=== PATIENT | male | born 1985 | race Caucasian/White ===

== ENCOUNTER 2018-10-18 01:00 | Outpatient (CLI) | payer BC, SELFPAY ==
--- NOTE | 2018-10-18 08:56 | DI.MRI_ITS ---
SYMPTOM/DIAGNOSIS: CHRONIC BACK AND NECK PAIN, M54.5, PARESTHESIAS IN HANDS CERVICAL SPINE MRI: T 1, T 2, STIR, FLAIR and T 2 3D sagittal and gradient echo axial sequences were performed. The exam is somewhat limited by patient motion. There is some reversal of the normal cervical lordosis. There is minimal posterior disc bulging at C 5-6 and C 6-7. There is slight effacement of the anterior CSF space but no significant central canal stenosis. No neural foraminal narrowing is seen at any level. The marrow signal and cord signal appear normal. IMPRESSION: Limited exam due to patient motion. Mild disc bulging is seen at C 5-6 and C 6-7. THORACIC SPINE CT: T 1, T 2, STIR and T 2 3D sagittal and T 2 axial sequences were performed. The cord signal and marrow signal appear normal. The intervertebral discs appear intact. No neural foraminal narrowing or central canal stenosis is seen. IMPRESSION: Negative MRI of the thoracic spine.
== END 2018-10-18 01:20 ==
PROVIDERS: PCP Nurse Practitioner Family; Visit Provider Nurse Practitioner Family
DX: M54.2 Cervicalgia (principal); M54.6 Pain in thoracic spine; R20.2 Paresthesia of skin; M50.222 Other cervical disc displacement at C5-C6 level; M50.223 Other cervical disc displacement at C6-C7 level
CPT/HCPCS: 72141; 72146

== ENCOUNTER 2019-01-27 11:34 | Emergency (ER) | payer MEDICAID, SELFPAY ==
[2019-01-27 11:41] VITALS: BP 143/60; PULSE 78; RESP 18; TEMP 36.6; O2SAT 96
--- NOTE | 2019-01-27 13:05 | ED.GENADUL_ITS ---
Discharge Plan Disposition Patient Disposition: HOME Discharge Details Chief Complaint: Cellulitis Primary Care Provider: Casey Ferrer ED Provider: Nilo Hernandez Home Meds and New Rx's Prescriptions: New cephalexin [Keflex] 500 mg capsule 500 mg PO QID 7 Days Qty: 28 RF: 0 sulfamethoxazole-trimethoprim [Bactrim DS] 800-160 mg tablet 1 tab PO BID 7 Days Qty: 14 RF: 0 hydrocodone-acetaminophen [[place]] 5-325 mg tablet 1 tab PO Q6H PRN (Reason: pain) Qty: 5 RF: 0 Continued ibuprofen [Advil] 200 mg tablet 200 mg PO BID PRNRF: 0 multivitamin [Multi-Day] 1 EACH tablet 1 ea PO DAILY RF: 0 No Action naproxen sodium [Aleve] 220 mg Tablet 440 mg PO BID PRNRF: 0 Discharge Data Discharge Date/Time-TO BE ENTERED AT DEPARTURE: 01/27/19 13:25 Medical Decision Making Cellulitis, induration, right scapula, 1% lidocaine 6 mL's. Verbal consent, 11 blade incision, bleeding no purulent drainage noted. Patient placed on Keflex and Bactrim, close return precautions were discussed, patient having significant amount of pain so the drug database was queried and showed no suspicion of abuse so given limited supply of [place]. Return precautions discussed. After discussion of diagnosis and plan of care patient has no further needs, questions, or concerns and states clear understanding to return to the emergency department for any worsening symptoms. HPI General Mode of arrival: ambulatory . Date/Time Provider Initiated Documentation: 01/27/19 13:01 . Limitations to Documentation: no limitations . Information obtained by: patient and RN notes reviewed . History of Present Illness 33 year old M presents to the emergency department with the chief complaint of Back abscess, described as moderate, with intensity rated at 8. Quality is described as aching, and is localized to the back. Patient started experiencing this day(s) (3) and it has been constant. No relieving factors improve symptom(s), No exacerbating factors reported . Patient notes no other symptoms.. Patient did receive the following treatments prior to arrival, none Related Data Home Medications Medication Instructions Recorded Confirmed multivitamin [Multi-Day] 1 ea PO DAILY NS 10/29/13 01/29/19 ibuprofen 200 mg tablet 200 mg PO BID PRN tab 12/14/18 01/29/19 cephalexin [Keflex] 500 mg PO QID 7 Days #28 cap 01/27/19 01/29/19 hydrocodone-acetaminophen [[place]] 1 tab PO Q6H PRN #5 tab 01/27/19 01/29/19 sulfamethoxazole-trimethoprim 1 tab PO BID 7 Days #14 tab 01/27/19 01/29/19 [Bactrim DS] naproxen sodium [Aleve] 440 mg PO BID PRN 01/29/19 01/29/19 Previous Rx's Medication Instructions Recorded cephalexin [Keflex] 500 mg PO QID 7 Days #28 cap 01/27/19 hydrocodone-acetaminophen [[place]] 1 tab PO Q6H PRN #5 tab 01/27/19 sulfamethoxazole-trimethoprim 1 tab PO BID 7 Days #14 tab 01/27/19 [Bactrim DS] Allergies Allergy/AdvReac Type Severity Reaction Status Date / Time pollen extracts Allergy Unverified 01/27/19 11:44 General Stated Complaint: Cellulitis SANJAY: 4 Review of Systems Constitutional Denies body ache(s), Denies chills and Denies fever(s) Cardiovascular Denies chest pain and Denies dyspnea Respiratory Denies dyspnea Gastrointestinal Denies abdominal pain, Denies nausea and Denies vomiting Integumentary/Breasts Reports as per HPI, Reports erythema and Reports skin swelling PFSH Medical History Neck pain (Acute) 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 (Acute) Carpal tunnel syndrome on both sides (Acute) Family History Father Diabetes Social History Smoking/Tobacco Use Status: Never Alcohol Intake: current Alcohol Intake frequency: a few times a month Drug use: Never current occupation: [employer] Manager Exam Const General: cooperative, no acute distress and not ill appearing Orientation: alert, awake and oriented x3 HENMT Mouth: moist mucous membranes Resp Effort & Inspection: normal respiratory effort, able to speak in complete sentences and no respiratory distress Cardio Rate: regular rate Rhythm: regular rhythm Skin General skin exam: erythema (Surrounding area of induration) and induration (To right scapula) Course Vital Signs Temperature 36.6 C 01/27/19 11:41 Pulse 78 01/27/19 11:41 Respiratory Rate 18 01/27/19 11:41 Blood Pressure 143/60 H 01/27/19 11:41 Pulse Oximetry 96 01/27/19 11:41 Temperature 36.6 C 01/27/19 11:41 Temperature Source Temporal Artery Scan 01/27/19 11:41 Pulse 78 01/27/19 11:41 Respiratory Rate 18 01/27/19 11:41 Respiratory Effort Non-Labored 01/27/19 12:12 Blood Pressure 143/60 H 01/27/19 11:41 Pulse Oximetry 96 01/27/19 11:41 Oxygen Delivery Method Room Air 01/27/19 11:41 Oxygen Flow Rate 0 01/27/19 11:41
[2019-01-27] MEDS: Sulfameth/Trimeth DS TAB 1 TAB PO (13:10)
[2019-01-27] MEDS: Ibuprofen 600 MG TAB PO (13:10)
[2019-01-27] MEDS: Cephalexin 500 MG CAP PO (13:10)
== END 2019-01-27 13:25 | disposition home or self-care (01) ==
PROVIDERS: Emergency Provider Nurse Practitioner Family; PCP Nurse Practitioner Family
DX: L03.312 Cellulitis of back [any part except buttock and flank] (principal)
CPT/HCPCS: 10060

== ENCOUNTER 2019-01-29 20:55 | Emergency (ER) | payer MEDICAID, SELFPAY ==
[2019-01-29 21:05] VITALS: BP 154/73; PULSE 92; RESP 18; TEMP 36.5; O2SAT 97
--- NOTE | 2019-01-29 21:36 | W.ED.GENAD ---
Discharge Plan Disposition Patient Disposition: HOME Discharge Details Chief Complaint: Cellulitis Clinical Impression: Cellulitis, Abscess of back Primary Care Provider: Casey Ferrer ED Provider: Mata Perez Home Meds and New Rx's Prescriptions: No Action ibuprofen [Advil] 200 mg tablet 200 mg PO BID PRNRF: 0 multivitamin [Multi-Day] 1 EACH tablet 1 ea PO DAILY RF: 0 naproxen sodium [Aleve] 220 mg Tablet 440 mg PO BID PRNRF: 0 cephalexin [Keflex] 500 mg capsule 500 mg PO QID 7 Days Qty: 28 RF: 0 sulfamethoxazole-trimethoprim [Bactrim DS] 800-160 mg tablet 1 tab PO BID 7 Days Qty: 14 RF: 0 hydrocodone-acetaminophen [[place]] 5-325 mg tablet 1 tab PO Q6H PRN (Reason: pain) Qty: 5 RF: 0 Discharge Instructions Instructions: Abscess (ED) Additional Instructions: Continue with your current antibiotic regimen. Apply warm compresses 4 times daily. Return to the ED promptly if you develop fever, chills, lethargy, increasing redness or pain. Otherwise, follow-up with your primary care provider tomorrow as scheduled. Referrals: Casey Ferrer, COMPUTATIONAL SCIENCES PROFESSOR [Primary Care Provider] - Medical Decision Making Abscess site anesthetized with lidocaine and small amount of additional purulent drainage was expelled. Ultrasound utilized to explore any additional loculations, no additional fluid collections identified. Impression is that abscess and cellulitis are improving as expected, I would not call this a treatment failure with antibiotics at this point as it has only been 2 days. Patient instructed to return to the emergency department for any worsening symptoms, expanding erythema, fever, chills, lethargy. Otherwise he plans to follow-up with his primary care provider as scheduled tomorrow. [facility] General Date/Time Provider Initiated Documentation: 01/29/19 21:36. Limitations to Documentation: no limitations. Information obtained by: patient. [facility] Narrative: Patient presents today to the emergency department for reevaluation of his right upper back abscess. He was seen here Tuesday, underwent incision and drainage, and Bactrim as well as Keflex prescriptions were initiated. He was instructed to return in 2 days if symptoms were not improved. He is here today without fever, chills, lethargy, increase in redness, and no additional complaints. He is here because his pain and abscess site have not significantly improved in 2 days. He is having a small amount of yellow-colored discharge from the abscess site. He is taking medications as prescribed. Related Data Home Medications Medication Instructions Recorded Confirmed multivitamin [Multi-Day] 1 ea PO DAILY NS 10/29/13 01/29/19 ibuprofen 200 mg tablet 200 mg PO BID PRN tab 12/14/18 01/29/19 cephalexin [Keflex] 500 mg PO QID 7 Days #28 cap 01/27/19 01/29/19 hydrocodone-acetaminophen [[place]] 1 tab PO Q6H PRN #5 tab 01/27/19 01/29/19 sulfamethoxazole-trimethoprim 1 tab PO BID 7 Days #14 tab 01/27/19 01/29/19 [Bactrim DS] naproxen sodium [Aleve] 440 mg PO BID PRN 01/29/19 01/29/19 Previous Rx's Medication Instructions Recorded cephalexin [Keflex] 500 mg PO QID 7 Days #28 cap 01/27/19 hydrocodone-acetaminophen [[place]] 1 tab PO Q6H PRN #5 tab 01/27/19 sulfamethoxazole-trimethoprim 1 tab PO BID 7 Days #14 tab 01/27/19 [Bactrim DS] Allergies Allergy/AdvReac Type Severity Reaction Status Date / Time pollen extracts Allergy Unverified 01/27/19 11:44 General Stated Complaint: Cellulitis SANJAY: 4 Review of Systems Constitutional Denies chills, Denies fatigue, Denies fever(s) and Denies lethargy ENT Denies sore throat Cardiovascular Denies chest pain and Denies dyspnea Respiratory Denies cough and Denies dyspnea Gastrointestinal Denies nausea and Denies vomiting Musculoskeletal Denies numbness Neurologic Denies focal weakness and Denies numbness Endocrine Denies fatigue [facility] Medical History Neck pain (Acute) 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 (Acute) Carpal tunnel syndrome on both sides (Acute) Family History Father Diabetes Social History Smoking/Tobacco Use Status: Never Alcohol Intake: current Alcohol Intake frequency: a few times a month Drug use: Never 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 Macular erythema 2. Induration with 1.5 cm incision site which remains open. Yellow drainage with gentle palpation to site. Neuro General: alert and awake Speech: speech normal Gait: normal gait Extrem General: normal to inspection Course Vital Signs Temperature 36.5 C 01/29/19 21:05 Pulse 92 H 01/29/19 21:05 Respiratory Rate 18 01/29/19 21:05 Blood Pressure 154/73 H 01/29/19 21:05 Pulse Oximetry 97 01/29/19 21:05 Temperature 36.5 C 01/29/19 21:05 Temperature Source Skin 01/29/19 21:05 Pulse 92 H 01/29/19 21:05 Respiratory Rate 18 01/29/19 21:05 Blood Pressure 154/73 H 01/29/19 21:05 Blood Pressure Position Sitting 01/29/19 21:05 Pulse Oximetry 97 01/29/19 21:05 Oxygen Delivery Method Room Air 01/29/19 21:05 Oxygen Flow Rate 0 01/29/19 21:05 Pain Level 2 01/29/19 21:05 Procedures Abscess I/D Local Anesthetic: Lidocaine 1% Amount of anesthesia used (mL): 5 Technique: Needle Aspiration and Other (Previous incision site was explored and additional blunt dissection with forceps. Additionally, ultrasound was utilized to explore any other area of loculation. Firm pressure applied to borders of induration with expression of approximately 5 cc of yellow or yellow material.) Packing used?: None
--- NOTE | 2019-01-29 23:16 | ED.GENADUL_ITS ---
Discharge Plan Disposition Patient Disposition: HOME Discharge Details Chief Complaint: Cellulitis Clinical Impression: Cellulitis, Abscess of back Primary Care Provider: Casey Ferrer ED Provider: Mata Perez Home Meds and New Rx's Prescriptions: No Action ibuprofen [Advil] 200 mg tablet 200 mg PO BID PRNRF: 0 multivitamin [Multi-Day] 1 EACH tablet 1 ea PO DAILY RF: 0 naproxen sodium [Aleve] 220 mg Tablet 440 mg PO BID PRNRF: 0 cephalexin [Keflex] 500 mg capsule 500 mg PO QID 7 Days Qty: 28 RF: 0 sulfamethoxazole-trimethoprim [Bactrim DS] 800-160 mg tablet 1 tab PO BID 7 Days Qty: 14 RF: 0 hydrocodone-acetaminophen [[place]] 5-325 mg tablet 1 tab PO Q6H PRN (Reason: pain) Qty: 5 RF: 0 Discharge Instructions Instructions: Abscess (ED) Additional Instructions: Continue with your current antibiotic regimen. Apply warm compresses 4 times daily. Return to the ED promptly if you develop fever, chills, lethargy, increasing redness or pain. Otherwise, follow-up with your primary care provider tomorrow as scheduled. Referrals: Casey Ferrer, BICYCLE II ASSEMBLER [Primary Care Provider] - Medical Decision Making Abscess site anesthetized with lidocaine and small amount of additional purulent drainage was expelled. Ultrasound utilized to explore any additional loculations, no additional fluid collections identified. Impression is that abscess and cellulitis are improving as expected, I would not call this a treatm ent failure with antibiotics at this point as it has only been 2 days. Patient instructed to return to the emergency department for any worsening symptoms, expanding erythema, fever, chills, lethargy. Otherwise he plans to follow-up with his primary care provider as scheduled tomorrow. [facility] General Date/Time Provider Initiated Documentation: 01/29/19 21:36 . Limitations to Documentation: no limitations . Information obtained by: patient . [facility] Narrative: Patient presents today to the emergency department for reevaluation of his right upper back abscess. He was seen here Tuesday, underwent incision and drainage, and Bactrim as well as Keflex prescriptions were initiated. He was instructed to return in 2 days if symptoms were not improved. He is here today without fever, chills, lethargy, increase in redness, and no additional complaints. He is here because his pain and abscess site have not significantly improved in 2 days. He is having a small amount of yellow-colored discharge from the abscess site. He is taking medications as prescribed. Related Data Home Medications Medication Instructions Recorded Confirmed multivitamin [Multi-Day] 1 ea PO DAILY NS 10/29/13 01/29/19 ibuprofen 200 mg tablet 200 mg PO BID PRN tab 12/14/18 01/29/19 cephalexin [Keflex] 500 mg PO QID 7 Days #28 cap 01/27/19 01/29/19 hydrocodone-acetaminophen [[place]] 1 tab PO Q6H PRN #5 tab 01/27/19 01/29/19 sulfamethoxazole-trimethoprim 1 tab PO BID 7 Days #14 tab 01/27/19 01/29/19 [Bactrim DS] naproxen sodium [Aleve] 440 mg PO BID PRN 01/29/19 01/29/19 Previous Rx's Medication Instructions Recorded cephalexin [Keflex] 500 mg PO QID 7 Days #28 cap 01/27/19 hydrocodone-acetaminophen [[place]] 1 tab PO Q6H PRN #5 tab 01/27/19 sulfamethoxazole-trimethoprim 1 tab PO BID 7 Days #14 tab 01/27/19 [Bactrim DS] Allergies Allergy/AdvReac Type Severity Reaction Status Date / Time pollen extracts Allergy Unverified 01/27/19 11:44 General Stated Complaint: Cellulitis SANJAY: 4 Review of Systems Constitutional Denies chills, Denies fatigue, Denies fever(s) and Denies lethargy ENT Denies sore throat Cardiovascular Denies chest pain and Denies dyspnea Respiratory Denies cough and Denies dyspnea Gastrointestinal Denies nausea and Denies vomiting Musculoskeletal Denies numbness Neurologic Denies focal weakness and Denies numbness Endocrine Denies fatigue [facility] Medical History Neck pain (Acute) 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 (Acute) Carpal tunnel syndrome on both sides (Acute) Family History Father Diabetes Social History Smoking/Tobacco Use Status: Never Alcohol Intake: current Alcohol Intake frequency: a few times a month Drug use: Never 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 Macular erythema 2. Induration with 1.5 cm incision site which remains open. Yellow drainage with gentle palpation to site. Neuro General: alert and awake Speech: speech normal Gait: normal gait Extrem General: normal to inspection Course Vital Signs Temperature 36.5 C 01/29/19 21:05 Pulse 92 H 01/29/19 21:05 Respiratory Rate 18 01/29/19 21:05 Blood Pressure 154/73 H 01/29/19 21:05 Pulse Oximetry 97 01/29/19 21:05 Temperature 36.5 C 01/29/19 21:05 Temperature Source Skin 01/29/19 21:05 Pulse 92 H 01/29/19 21:05 Respiratory Rate 18 01/29/19 21:05 Blood Pressure 154/73 H 01/29/19 21:05 Blood Pressure Position Sitting 01/29/19 21:05 Pulse Oximetry 97 01/29/19 21:05 Oxygen Delivery Method Room Air 01/29/19 21:05 Oxygen Flow Rate 0 01/29/19 21:05 Pain Level 2 01/29/19 21:05 Procedures Abscess I/D Local Anesthetic: Lidocaine 1% Amount of anesthesia used (mL): 5 Technique: Needle Aspiration and Other (Previous incision site was explored and additional blunt dissection with forceps. Additionally, ultrasound was utilized to explore any other area of loculation. Firm pressure applied to borders of induration with expression of approximately 5 cc of yellow or yellow material.) Packing used?: None
== END 2019-01-29 22:30 | disposition home or self-care (01) ==
PROVIDERS: Emergency Provider Physician Assistant Medical; PCP Nurse Practitioner Family
DX: L02.212 Cutaneous abscess of back [any part, except buttock and flank] (principal); L03.312 Cellulitis of back [any part except buttock and flank]
CPT/HCPCS: 10160

== ENCOUNTER 2019-02-01 11:58 | Outpatient (REF) | payer MEDICAID, SELFPAY | END 2019-02-01 12:18 | LOC: NCHCN 11:58 | PROVIDERS: PCP Nurse Practitioner Family; Visit Provider Nurse Practitioner Family | DX: S21.201D Unspecified open wound of right back wall of thorax without penetration into thoracic cavity, subsequent encounter (principal); Z51.89 Encounter for other specified aftercare | CPT/HCPCS: 87077; 87070; 87186; 87205 ==

== ENCOUNTER 2020-05-21 12:18 | Outpatient (REF) | payer SELFPAY ==
[2020-05-21 21:00] LABS: Anion Gap 5.6 mmol/L (3-11); BUN 17 mg/dL (7-18); CO2 28.4 mmol/L (21.0-32.0); Calcium 9.4 mg/dL (8.5-10.1); Chloride 102 mmol/L (98-107); Glucose 83 mg/dL (74-106); Potassium 4.5 mmol/L (3.5-5.1); Sodium 136 mmol/L (136-145)
== END 2020-05-21 12:38 ==
LOC: NCHCN 12:18
PROVIDERS: PCP Nurse Practitioner Family; Visit Provider Nurse Practitioner Family
DX: M54.2 Cervicalgia (principal)
CPT/HCPCS: 80048

== ENCOUNTER 2020-11-03 09:14 | Outpatient (CLI) | payer BC, SELFPAY ==
--- NOTE | 2020-11-03 08:45 | DI.RAD_ITS ---
EXAM: XR CERVICAL SP ANSARI TRAUMA 2-3V CLINICAL HISTORY: neck pain. TECHNIQUE: 2D digital imaging was performed. COMPARISON: No exams were available for comparison FINDINGS: There is no evidence of acute fracture, listhesis, nor offset of the spinal laminar line. The disc s paces exhibit normal height although there is anterior osseous lipping at C5-6 which probably indicat es an element of degenerative disc disease at this level. There are no cervical ribs. On the software test automation engineer ior aspect of C6 spinous process is a small bony excrescence. This is probably within the supraspino us ligament at this level. IMPRESSION: DATA REPOSITORY: RADIATION DOSE DELIVERED:
== END 2020-11-03 09:15 | disposition home or self-care (01) ==
LOC: DIORS 09:14
PROVIDERS: PCP Nurse Practitioner Family; Referring Provider Nurse Practitioner Family; Visit Provider Physician Assistant
DX: M54.2 Cervicalgia (principal)
CPT/HCPCS: 72040

== ENCOUNTER → 2020-11-19 02:15 | Outpatient (CLI) | payer BC, SELFPAY ==
--- NOTE | 2020-11-19 07:45 | DI.MRI_ITS ---
EXAM: MR CERVICAL SPINE WO CLINICAL HISTORY: CERVICAL RADICULOPATHY, M54.12, PAIN TECHNIQUE: Multiplanar multisequence MRI of the cervical spine was performed without intravenous con trast. COMPARISON: MR MR cervical spine wo from 10/18/2018 MR MR cervical spine wo from 10/18/2018 CR XR CERVICAL SP ANSARI TRAUMA 2-3V from 11/03/2020 FINDINGS: The examination is limited due to patient motion artifact. BONES: Vertebral body heights are maintained. Intervertebral disc spaces are normal. Alignment is nor mal. Mild degenerative endplate signal changes are seen at C5-6 and C6-C7. CERVICAL CORD: Craniovertebral junction is unremarkable. The cervical cord is normal size and signal intensity. SOFT TISSUES: Unremarkable. C2-3: No disc herniation or bulge is identified. No significant central spinal canal or neural forami nal stenosis. C3-4: No disc herniation or bulge is identified. No significant central spinal canal or neural forami nal stenosis C4-5: No disc herniation or bulge is identified. No significant central spinal canal or neural forami nal stenosis C5-6: There is mild diffuse disc bulge. Mild prominence of the left uncovertebral joint causes mild left neural foraminal narrowing. There is minimal narrowing of the central spinal canal. This is un changed compared to the prior examination. No significant right neural foraminal stenosis is present . C6-7: Mild diffuse disc bulge. No significant central spinal canal or neural foraminal stenosis C7-T1: No disc herniation or bulge is identified. No significant central spinal canal or neural tamara inal stenosis IMPRESSION: Mild degenerative changes seen at C5-6 and C6-C7 which appears stable. DATA REPOSITORY:
== END ==
PROVIDERS: PCP Nurse Practitioner Family; Visit Provider Student in an Organized Health Care Education/Training Program
DX: M54.12 Radiculopathy, cervical region (principal); M50.322 Other cervical disc degeneration at C5-C6 level; M50.323 Other cervical disc degeneration at C6-C7 level
CPT/HCPCS: 72141

== ENCOUNTER 2021-01-26 17:14 | Outpatient (REF) | payer BC, SELFPAY ==
[2021-01-26 19:16] LABS: Abs Immature Grans 0.01 10^3/uL (0.0-0.06); HCT 45.4 % (40.0-50.0); HGB 15.1 g/dL (13.5-17.5); MCH 31.5 pg (27.0-33.0); MCHC 33.3 % (32.0-36.0); MCV 94.8 fL (80-95); MPV 10.3 fL (8.0-11.0); Nucleated RBC 0 %; Platelet Count 260 10^3/uL (130-400); RBC 4.79 10^6/uL (4.36-5.78); RDW 13.2 % (11.8-14.1); RDW-SD 46.9 fL
[2021-01-26 19:19] LABS: Anion Gap 8.4 mmol/L (3-11); BUN 15 mg/dL (7-18); CO2 28.6 mmol/L (21.0-32.0); CREATININE 1.5 mg/dL (0.70-1.30); Calcium 8.6 mg/dL (8.5-10.1); Chloride 105 mmol/L (98-107); Glucose 79 mg/dL (74-106); Sodium 142 mmol/L (136-145)
[2021-01-26 19:21] LABS: ESR 49 mm/hr (0-15)
[2021-01-26 19:30] LABS: Diff Comment Manual Differential; RBC Morphology Normal
[2021-01-26 19:31] LABS: Absolute Eosinophil Count 0.09 10^3/uL (0.0-0.7); Absolute Lymphocyte Count 1.62 10^3/uL (1.2-3.4); Absolute Monocyte Count 0.72 10^3/uL (0.1-0.8); Absolute Neutrophil Count 2.07 10^3/uL (1.2-6.7); Atypical Lymphocytes % 4; Bands % 1
== END 2021-01-26 17:15 | disposition home or self-care (01) ==
LOC: NCHCN 17:14
PROVIDERS: PCP Nurse Practitioner Family; Visit Provider Nurse Practitioner Family
DX: R51.9 Headache, unspecified (principal); M79.18 Myalgia, other site; R68.83 Chills (without fever)
CPT/HCPCS: 80048; 85652; 85025

== ENCOUNTER 2021-01-28 11:07 | Outpatient (REF) | payer BC, SELFPAY ==
[2021-01-28 16:14] LABS: Anion Gap 9.8 mmol/L (3-11); BUN 18 mg/dL (7-18); CO2 28.2 mmol/L (21.0-32.0); CREATININE 1.6 mg/dL (0.70-1.30); Calcium 8.9 mg/dL (8.5-10.1); Chloride 104 mmol/L (98-107); Creatine Kinase 199 U/L (39-308); Estimated GFR 50.03 (mL/min/1.73m2); Glucose 60 mg/dL (74-106); Potassium 4.5 mmol/L (3.5-5.1); Sodium 142 mmol/L (136-145)
[2021-01-29 16:26] LABS: COVID-19 RT-PCR UVMMC Result Positive (Negative)
[2021-01-30 12:29] LABS: Lyme Ab w Rflx to Lyme Confirm Positive (Negative)
[2021-02-03 15:47] LABS: IgG Immunoblot Negative (Negative); IgM Band(s) p41; IgM Immunoblot Positive (Negative)
== END 2021-01-28 11:08 | disposition home or self-care (01) ==
LOC: NCHCN 11:07
PROVIDERS: PCP Nurse Practitioner Family; Visit Provider Nurse Practitioner Family
DX: R05 Cough (principal); R68.83 Chills (without fever); M79.18 Myalgia, other site; R51.9 Headache, unspecified; Z20.822 Contact with and (suspected) exposure to COVID-19
CPT/HCPCS: 80048; 82550; 86617; U0003; 86618

== ENCOUNTER 2021-02-16 13:28 | Outpatient (REF) | payer BC, SELFPAY ==
[2021-02-17 12:26] LABS: Lyme Ab w Rflx to Lyme Confirm Equivocal (Negative)
[2021-02-20 15:34] LABS: IgG Immunoblot Negative (Negative); IgM Band(s) p23; IgM Immunoblot Negative (Negative)
== END 2021-02-16 13:29 | disposition home or self-care (01) ==
LOC: NCHCN 13:28
PROVIDERS: PCP Nurse Practitioner Family; Visit Provider Nurse Practitioner Family
DX: A69.20 Lyme disease, unspecified (principal)
CPT/HCPCS: 86617; 86618

== ENCOUNTER 2021-12-16 13:06 | Outpatient (REF) | payer BC, SELFPAY ==
[2021-12-16 21:47] LABS: HCT 46.1 % (40.0-50.0); HGB 15.8 g/dL (13.5-17.5); MCHC 34.3 % (32.0-36.0); MCV 93.5 fL (80-95); MPV 10.4 fL (8.0-11.0); Platelet Count 246 10^3/uL (130-400); RBC 4.93 10^6/uL (4.36-5.78); RDW 11.4 % (11.8-14.1); RDW-SD 39.8 fL; WBC 5.04 10^3/uL (4.4-10.8)
[2021-12-16 22:23] LABS: ALT 40 U/L (16-63); AST 19 U/L (15-37); Albumin 4.4 g/dL (3.4-5.0); Alkaline Phosphatase 58 U/L (46-116); Anion Gap 6.5 mmol/L (3-11); BUN 22 mg/dL (7-18); Bilirubin, Total 1.2 mg/dL (0.2-1.0); CO2 30.5 mmol/L (21.0-32.0); CREATININE 1.4 mg/dL (0.70-1.30); Calcium 9.3 mg/dL (8.5-10.1); Chloride 105 mmol/L (98-107); Estimated GFR 58.01 (mL/min/1.73m2); Glucose 71 mg/dL (74-106); Potassium 4.3 mmol/L (3.5-5.1); Sodium 142 mmol/L (136-145); TSH 1.11 uIU/mL (0.36-3.74); Total Protein 7.1 g/dL (6.4-8.2)
[2021-12-16 23:27] LABS: Hemoglobin A1C 5.4 % (<5.7)
[2021-12-17 05:32] LABS: Vitamin D 25 Total 30.5 ng/mL (30-100)
== END 2021-12-16 13:07 | disposition home or self-care (01) ==
LOC: NCHCN 13:06
PROVIDERS: PCP Nurse Practitioner Family; Visit Provider Nurse Practitioner Family
DX: R53.83 Other fatigue (principal); L60.8 Other nail disorders
CPT/HCPCS: 80053; 82306; 85027; 83036; 84443

== ENCOUNTER 2021-12-25 08:39 | Outpatient (REF) | payer BC, SELFPAY ==
[2022-01-04 10:49] LABS: Testosterone, Free 10.6 ng/dL (4.85-19.0); Testosterone, Total 330 ng/dL (240-950)
== END 2021-12-25 08:40 | disposition home or self-care (01) ==
LOC: NCHCN 08:39
PROVIDERS: PCP Nurse Practitioner Family; Visit Provider Nurse Practitioner Family
DX: R53.83 Other fatigue (principal)
CPT/HCPCS: 84402; 84403

== ENCOUNTER → 2022-06-02 12:36 | Outpatient (CLI) | payer BC, SELFPAY ==
--- NOTE | 2022-06-02 15:42 | DI.RAD_ITS ---
Exam(s) XR LUMBAR SPINE COMPLETE EXAM: XR LUMBAR SPINE COMPLETE CLINICAL HISTORY: ACUTE LOW BACK PAIN, M54.59,? OA. TECHNIQUE: 2D digital imaging was performed. COMPARISON: No exams were available for comparison FINDINGS: Five views: No evidence of fracture, listhesis, or pars interarticularis defects. No disc space narrowing.. No scoliosis. No facet arthropathy. No osseous lesions. Bone density is normal. Sacroiliac joints appear unremarkable. Slight irregula rity of the right transverse process of L1 is probably developmental. IMPRESSION: DATA REPOSITORY: RADIATION DOSE DELIVERED:
== END ==
PROVIDERS: PCP Nurse Practitioner Family; Visit Provider Nurse Practitioner Family
DX: M54.59 Other low back pain (principal)
CPT/HCPCS: 72110

== ENCOUNTER 2023-02-02 12:49 | Outpatient (REF) | payer BC, SELFPAY ==
[2023-02-02 15:47] LABS: HCT 50.6 % (40.0-50.0); HGB 16.9 g/dL (13.5-17.5); MCH 32.7 pg (27.0-33.0); MCHC 33.4 % (32.0-36.0); MCV 98 fL (80-95); MPV 9.6 fL (8.0-11.0); Platelet Count 278 10^3/uL (130-400); RBC 5.17 10^6/uL (4.36-5.78); RDW 11.9 % (11.8-14.1); RDW-SD 43.1 fL; WBC 3.46 10^3/uL (4.4-10.8)
[2023-02-02 16:09] LABS: ALT 65 U/L (16-63); AST 55 U/L (15-37); Alkaline Phosphatase 54 U/L (46-116); Anion Gap 3.4 mmol/L (3-11); BUN 18 mg/dL (7-18); Bilirubin, Total 0.7 mg/dL (0.2-1.0); CO2 29.6 mmol/L (21.0-32.0); CREATININE 1.5 mg/dL (0.70-1.30); Calcium 8.8 mg/dL (8.5-10.1); Chloride 107 mmol/L (98-107); Estimated GFR 61.88 (mL/min/1.73m2); Glucose 54 mg/dL (74-106); Potassium 4.4 mmol/L (3.5-5.1); Sodium 140 mmol/L (136-145); TSH (W/Ref FT4) 1.05 uIU/mL (0.36-3.74); Total Protein 7.2 g/dL (6.4-8.2)
[2023-02-02 16:25] LABS: Vitamin D 25 Total 32.8 ng/mL (30-100)
== END 2023-02-02 12:50 | disposition home or self-care (01) ==
LOC: NCHCN 12:49
PROVIDERS: PCP Nurse Practitioner Family; Visit Provider Nurse Practitioner Family
DX: R00.2 Palpitations (principal); R53.83 Other fatigue
CPT/HCPCS: 80053; 82306; 85027; 84443

== ENCOUNTER 2023-02-10 10:02 | Outpatient (RCR) | payer BC, SELFPAY ==
--- NOTE | 2023-02-10 10:15 | HOLTER_ITS ---
APPROVED REPORT Conclusion This is a 48-hour Holter monitor Rhythm throughout is sinus with an average heart rate of 92. Minimum was 48, maximum 176 There were occasional isolated ventricular ectopic beats There were rare isolated atrial premature beats There was no atrial fibrillation, no high-grade AV block, no pauses greater than 3 seconds
== END 2023-03-11 23:59 | disposition home or self-care (01) ==
LOC: CARDOPNVT 10:02
PROVIDERS: PCP Nurse Practitioner Family; Visit Provider Nurse Practitioner Family
DX: R00.2 Palpitations (principal); I49.1 Atrial premature depolarization
CPT/HCPCS: 93225; 93226

== ENCOUNTER 2023-02-10 10:15 | Outpatient (REF) | payer BC, SELFPAY ==
[2023-02-10 15:46] LABS: Glucose 90 mg/dL (74-106)
[2023-02-11 18:00] LABS: C-Peptide 1.6 ng/mL (1.1 - 4.4)
[2023-02-14 08:45] LABS: Insulin 3.4 uIU/mL (<29.0)
[2023-02-18 09:27] LABS: Beta-Hydroxybutyrate 0.1 mmol/L (<0.4)
== END 2023-02-10 10:16 | disposition home or self-care (01) ==
LOC: NCHCN 10:15
PROVIDERS: PCP Nurse Practitioner Family; Visit Provider Nurse Practitioner Family
DX: E16.2 Hypoglycemia, unspecified (principal)
CPT/HCPCS: 82947; 82010; 83525; 84681

== ENCOUNTER 2023-02-16 00:47 | Outpatient (CLI) | payer BC, SELFPAY ==
--- NOTE | 2023-02-16 | DI.RAD_ITS ---
Exam(s) RF BARIUM SWALLOW EXAM: RF BARIUM SWALLOW CLINICAL HISTORY: DYSPHAGIA, R13.10 TECHNIQUE: 2D and realtime digital imaging was performed. CONTRAST MATERIAL: Oral barium Oral water soluble contrast was administered. COMPARISON: No exams were available for comparison FINDINGS: CHEST X-RAY: The heart and pulmonary vasculature are within normal limits. The lungs are clear. No pl eural effusion or pneumothorax is present. The bones are within normal limits for the patient's age. ESOPHAGRAM: The esophagus is patent with no evidence for erosions, fold thickening, strictures, or ma sses. Normal impressions by the aorta and left mainstem bronchus are seen on the esophagus. With re gards to the motility, there is a normal primary stripping wave. No tertiary contractions were noted. There is a small hiatal hernia. No gastroesophageal reflux was identified during the examination. IMPRESSION: 1. Small hiatal hernia. 2. Otherwise unremarkable esophagram. RADIATION DOSE DELIVERED: harriet Silva=37 mGy
[2023-02-16] MEDS: Barium Sulfate 700 MG TAB PO (09:50)
[2023-02-16] MEDS: Barium Sulfate 60% W/V 355 ML BTL PO (09:50)
[2023-02-16] MEDS: Barium Sulfate 98% W/W 140 ML BTL PO (09:51)
== END 2023-02-16 01:07 ==
LOC: DI 00:48
PROVIDERS: PCP Nurse Practitioner Family; Visit Provider Nurse Practitioner Family
DX: R13.10 Dysphagia, unspecified (principal); K44.9 Diaphragmatic hernia without obstruction or gangrene
CPT/HCPCS: 74221; J3490

== ENCOUNTER 2023-03-23 16:26 | Outpatient (REF) | payer BC, SELFPAY ==
[2023-03-23 17:14] LABS: Abs Immature Grans 0.01 10^3/uL (0.0-0.06); Absolute Basophil Count 0.05 10^3/uL (0.0-0.2); Absolute Eosinophil Count 0.07 10^3/uL (0.0-0.7); Absolute Monocyte Count 0.59 10^3/uL (0.1-0.8); Eosinophils % 1.5; HCT 53.9 % (40.0-50.0); HGB 18.5 g/dL (13.5-17.5); Immature Grans % 0.2; Lymphocytes % 37.3; MCHC 34.3 % (32.0-36.0); MCV 93 fL (80-95); MPV 10.4 fL (8.0-11.0); Monocytes % 12.2; Neutrophils % 47.8; Platelet Count 264 10^3/uL (130-400); RBC 5.79 10^6/uL (4.36-5.78); RDW 11.5 % (11.8-14.1); RDW-SD 39.2 fL; WBC 4.82 10^3/uL (4.4-10.8)
[2023-03-23 17:44] LABS: Iron 209 ug/dL (65-175); Total Iron Binding Capacity 344 ug/dL (250-450); Transferrin Sat 61 % (20-55)
[2023-03-23 18:01] LABS: Hemoglobin A1C 5.5 % (<5.7)
[2023-03-23 18:08] LABS: ALT 48 U/L (16-63); AST 33 U/L (15-37); Albumin 4.4 g/dL (3.4-5.0); Alkaline Phosphatase 70 U/L (46-116); Anion Gap 5.4 mmol/L (3-11); BUN 22 mg/dL (7-18); Bilirubin, Total 0.9 mg/dL (0.2-1.0); CO2 32.6 mmol/L (21.0-32.0); CREATININE 1.4 mg/dL (0.70-1.30); Calcium 9.4 mg/dL (8.5-10.1); Chloride 104 mmol/L (98-107); Estimated GFR 67.22 (mL/min/1.73m2); Ferritin 316 ng/mL (26-388); Folate 12.7 ng/mL (8.6-20.0); Glucose 93 mg/dL (74-106); Potassium 4.4 mmol/L (3.5-5.1); Sodium 142 mmol/L (136-145); Total Protein 7.6 g/dL (6.4-8.2); Vitamin B12 875 pg/mL (193-986)
== END 2023-03-23 16:27 | disposition home or self-care (01) ==
LOC: NCHCN 16:26
PROVIDERS: PCP Nurse Practitioner Family; Visit Provider Registered Nurse
DX: R41.840 Attention and concentration deficit (principal); F42.4 Excoriation (skin-picking) disorder; F42.9 Obsessive-compulsive disorder, unspecified
CPT/HCPCS: 80053; 82607; 82728; 82746; 83036; 83540; 83550; 85025

== ENCOUNTER 2023-03-30 18:19 | Outpatient (REF) | payer BC, SELFPAY ==
[2023-03-30 20:54] LABS: Vitamin D 25 Total 38.5 ng/mL (30-100)
== END 2023-03-30 18:20 | disposition home or self-care (01) ==
LOC: NCHCN 18:19
PROVIDERS: PCP Nurse Practitioner Family; Visit Provider Nurse Practitioner Family
DX: R79.0 Abnormal level of blood mineral (principal); R13.10 Dysphagia, unspecified; R00.2 Palpitations
CPT/HCPCS: 82306

== ENCOUNTER 2023-05-30 14:49 | Outpatient (CLI) | payer BC, SELFPAY ==
[2023-05-30 14:54] LABS: HGB 14.6 g/dL (13.5-17.5); MCH 31.4 pg (27.0-33.0); MCHC 34.8 % (32.0-36.0); MCV 90 fL (80-95); MPV 9.6 fL (8.0-11.0); Platelet Count 228 10^3/uL (130-400); RBC 4.65 10^6/uL (4.36-5.78); RDW 12.4 % (11.8-14.1); RDW-SD 40.7 fL; WBC 4.68 10^3/uL (4.4-10.8)
[2023-05-30 15:05] LABS: Prothrombin Time 9.9 sec (9.3-11.0)
[2023-05-30 15:19] LABS: Anion Gap 8.4 mmol/L (3-11); BUN 19 mg/dL (7-18); CO2 28.6 mmol/L (21.0-32.0); CREATININE 1.2 mg/dL (0.70-1.30); Calcium 9.4 mg/dL (8.5-10.1); Chloride 105 mmol/L (98-107); Estimated GFR 80.88 (mL/min/1.73m2); Glucose 96 mg/dL (74-106); Potassium 3.7 mmol/L (3.5-5.1); Sodium 142 mmol/L (136-145)
[2023-05-30 16:48] LABS: Bilirubin Negative (Negative); Blood Negative (Negative); Clarity Clear (Clear); Glucose Negative (Negative); Ketones Negative (Negative); Leukocyte Esterase Negative (Negative); Nitrite Negative (Negative); Specific Gravity 1.015 (1.005-1.025); Urobilinogen 0.2 mg/dL (Up to 0.2)
== END 2023-05-30 14:50 | disposition home or self-care (01) ==
LOC: LBO 14:50
PROVIDERS: PCP Nurse Practitioner Family
DX: R79.1 Abnormal coagulation profile (principal); Z01.812 Encounter for preprocedural laboratory examination; Z01.811 Encounter for preprocedural respiratory examination; Z01.818 Encounter for other preprocedural examination
CPT/HCPCS: 36415; 80048; 85027; 81003; 85610